=== PATIENT | male | born 1970 | race Caucasian/White ===

== ENCOUNTER 2016-05-13 06:58 | Day surgery (SDC) | payer SELFPAY ==
[~2016-05-13 06:58] MED LIST: Lactated Ringers 1,000 ML IV SCH; Lidocaine 1%/Sod Bicarbonate in NS 8.4% 1 ML Syringe PRN; Sodium Chloride 0.9% 10 ML Syringe FLUSH PRN
[2016-05-13] MEDS ORDERED: Propofol 200 MG/20 ML SDV ONE (07:17)
[2016-05-13] MEDS ORDERED: fentaNYL 250 MCG/5 ML SDV ONE (07:17)
[2016-05-13] MEDS ORDERED: Midazolam 1 MG/ML 2 ML SDV ONE (07:17)
[2016-05-13] MEDS ORDERED: Succinylcholine/Normal Saline 100 MG/5 ML Syringe ONE (07:19)
[2016-05-13] MEDS ORDERED: Lidocaine 1% 4 ML ONE (07:19)
[2016-05-13] MEDS ORDERED: EPINEPHrine 1:1000 1 MG/ML 30 ML MDV ONE (07:19)
[2016-05-13] MEDS ORDERED: Bupivacaine 0.5%/EPINEPHrine 1:200,000 50 ML MDV ONE (07:19)
[2016-05-13] MEDS ORDERED: Lidocaine 1% with EPINEPHrine 1:100,000 20 ML MDV ONE (07:20)
--- NOTE | 2016-05-13 07:31 | PCM.PREANE ---
Preanesthetic Assessment - Anesthesia/Transfusion/Family Hx Anesthesia History: Prior Anesthesia Without Reaction Family History of Anesthesia Reaction: No Transfusion History: No Prior Transfusion(s) - Review of Systems General: No Symptoms Pulmonary: Cough (chronic cough from smoking) Cardiovascular: No Symptoms Gastrointestinal: No symptoms Neurological: No Symptoms Other: Reports: None - Physical Assessment NPO Status Date: 05/12/16 NPO Status Time: 22:30 Pulse: 76 O2 Sat by Pulse Oximetry: 98 Respiratory Rate: 16 Blood Pressure: 113/76 Temperature: 36.8 C Height: 1.78 m Weight: 70.76 kg ASA Class: 2 Mental Status: Alert & Oriented x3 Dentition: Reports: Normal Dentition Thyro-Mental Finger Breadths: 3 Mouth Opening Finger Breadths: 5 ROM/Head Extension: Full Lungs: Clear to auscultation, Normal respiratory effort Cardiovascular: Regular Rate, Regular Rhythm - Allergies Allergies/Adverse Reactions: Allergies Allergy/AdvReac Type Severity Reaction Status Date / Time Penicillins Allergy Difficulty Verified 05/10/16 10:45 Breathing - Blood Blood Available: No - Anesthesia Plan Pre-Op Medication Ordered: None - Acknowledgements Anesthesia Type Planned: General Anesthesia Pt an Appropriate Candidate for the Planned Anesthesia: Yes Alternatives and Risks of Anesthesia Discussed w Pt/Guardian: Yes Pt/Guardian Understands and Agrees with Anesthesia Plan: Yes PreAnesthesia Questionnaire HEENT History: Reports: None Cardiovascular History: Reports: None Respiratory History: Reports: None Gastrointestinal History: Reports: None Genitourinary History: Reports: None 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 Musculoskeletal History: Reports: None Neurological History: Reports: None Psychiatric History: Reports: None Endocrine/Metabolic History: Reports: None Hematologic History: Reports: None Immunologic History: Reports: None Dermatologic History: Reports: None - Infectious Disease History Infectious Disease History: Reports: None - Past Surgical History Musculoskeletal Surgical History: Reports: Shoulder surgery - SUBSTANCE USE Smoking Status *Q: Current Every Day Smoker (1.5 packs/ day) Tobacco Use Within Last Twelve Months: Cigarettes Date of Last Drink: 02/25/16 (quit drinking alcohol about 3 months ago per patient ) Recreational Drug Use History: No Recreational Drug Type: Reports: Marijuana/Hashish (last 3 months ago), Methamphetamine (last 2000) - CURRENT (IN HOUSE) MEDS Current Meds: Current Medications Lactated Ringer's (Ringers, Lactated) 1,000 mls @ 125 mls/hr IV ASDIRECTED LORETA Stop: 05/13/16 23:00 Lidocaine/Sodium Bicarbonate (Buffered Lidocaine 1% In Ns 8.4%) 0.25 ml .XX ONETIME PRN PRN Reason: Prior to IV Start Stop: 05/13/16 18:00 Sodium Chloride (Saline Flush) 10 ml FLUSH ASDIRECTED PRN PRN Reason: Keep Vein Open Stop: 05/13/16 18:00 Discontinued Medications Bupivacaine HCl/Epinephrine Bitart (Marcaine 0.5%/Epinephrine 1:200,000) Confirm Administered Dose 50 ml .ROUTE .STK-MED ONE Stop: 05/13/16 07:20 Epinephrine HCl (Adrenalin 1:1000) Confirm Administered Dose 30 mg .ROUTE .STK- MED ONE Stop: 05/13/16 07:20 Fentanyl (Sublimaze) Confirm Administered Dose 250 mcg .ROUTE .STK-MED ONE Stop: 05/13/16 07:18 Lidocaine HCl (Xylocaine-Mpf 1%) Confirm Administered Dose 4 mls @ as directed .ROUTE .STK-MED ONE Stop: 05/13/16 07:20 Lidocaine/Epinephrine (Xylocaine 1% With Epinephrine 1:100,000) Confirm Administered Dose 20 ml .ROUTE .STK-MED ONE Stop: 05/13/16 07:21 Midazolam HCl (Versed 1 Mg/Ml) Confirm Administered Dose 2 mg .ROUTE .STK-MED ONE Stop: 05/13/16 07:18 Propofol (Diprivan 20 Ml) Confirm Administered Dose 400 mg .ROUTE .STK-MED ONE Stop: 05/13/16 07:18 Succinylcholine Chloride (Succinylcholine In Ns Pf) Confirm Administered Dose 100 mg .ROUTE .STK-MED ONE Stop: 05/13/16 07:20 Preanesthetic Assessment - ALLERGIES Allergies/Adverse Reactions: Allergies Allergy/AdvReac Type Severity Reaction Status Date / Time Penicillins Allergy Difficulty Verified 05/10/16 10:45 Breathing
[2016-05-13] MEDS ORDERED: Ondansetron 4 MG/2 ML SDV IVPUSH PRN (08:32)
[2016-05-13] MEDS ORDERED: diphenhydrAMINE 50 MG/ML SDV IVPUSH PRN (08:32)
[2016-05-13] MEDS ORDERED: fentaNYL 100 MCG/2 ML SDV IVPUSH PRN (08:32)
[2016-05-13] MEDS ORDERED: Dexamethasone 4 MG/ML 5 ML MDV ONE (08:43)
[2016-05-13] MEDS ORDERED: Phenylephrine 1% 10 MG/ML SDV ONE (08:43)
[2016-05-13] MEDS ORDERED: Ketorolac 30 MG/ML SDV ONE (08:49)
--- NOTE | 2016-05-13 09:20 | PCM.OPNOTE ---
- General Post-Op/Procedure Note Date of Surgery/Procedure: 05/13/16 Operative Procedure(s): 1. open right hydrocelectomy. 2. excision of a right testicular appendage Findings: large right hemiscrotal hydrocele containing 300 cc of fluid Pre Op Diagnosis: symptomatic right hydrocele Post-Op Diagnosis: same Anesthesia Technique: General LMA, Local Primary Surgeon: Pa Silva Pathology: none EBL in mLs: 3 Complications: None Condition: Good Free Text/Narrative:: After adequate LMA general anesthesia was obtained the patient was positioned in a supine fashion with his penis and scrotum prepped and draped sterilely for the procedure. Local analgesia was given in the median raphae of the scrotum. A 15 blade was used to make a skin incision approximately 6 cm in length. Cautery was used to enter the right hemiscrotum. The hydrocele was mobilized through the same incision. I made a small incision inthe hydrocele itself, which was bluish in color, externalyl and once entered contained yellow, straw-colored fluid. The testicles, and cord were normal. There was a testicular appendage, which I removed. I then excised the hydrocele sac back to the cord and testicle. I cauterized the edge for hemostasis. I replaced the right testicle into the right hemiscrotum. I closed the scrotum in 2 layers with Vicryl. Dermabond was used for the dressing. There were no procedural complications.
--- NOTE | 2016-05-13 09:23 | PCM.POSTAN ---
POST ANESTHESIA ASSESSMENT - MENTAL STATUS Mental Status: alert - VITAL SIGNS Pulse Rate: 78 SaO2: 92 Resp Rate: 9 Blood Pressure: 113/76 Temperature: 98.4 C - RESPIRATORY Respiratory Status: respiratory rate WNL, airway patent, O2 saturation stable - CARDIOVASCULAR CV Status: pulse rate WNL, blood pressure stable - GASTROINTESTINAL GI Status: no symptoms - PAIN Pain Score: 3 (being treated by WAITER/WAITRESS ) - POST OP HYDRATION Hydration Status: adequate & stable
[2016-05-13] MEDS ORDERED: Meperidine PF 50 MG/ML Syringe IVPUSH PRN (10:00)
--- NOTE | 2016-05-13 10:18 | PCM48HPAN ---
Post Anesthesia Note - EVALUATION WITHIN 48HRS OF ANESTHETIC Vital Signs in Normal Range: Yes Patient Participated in Evaluation: Yes Respiratory Function Stable: Yes Airway Patent: Yes Cardiovascular Function Stable: Yes Hydration Status Stable: Yes Pain Control Satisfactory: Yes Nausea and Vomiting Control Satisfactory: Yes Mental Status Recovered: Yes
[2016-05-13 10:32] VITALS: BP 92/64
== END 2016-05-13 10:30 | disposition home or self-care (01) ==
LOC: JD.SDS 06:58
PROVIDERS: ATTEND Surgery
PROC: 0VBF0ZZ Excision of Right Spermatic Cord, Open Approach (ICD-10-PCS; principal; 2016-05-13)
DX: N43.3 Hydrocele, unspecified (principal); F17.210 Nicotine dependence, cigarettes, uncomplicated; Z88.0 Allergy status to penicillin; Z98.890 Other specified postprocedural states
CPT/HCPCS: 55040; J1100; J1885; J2250; J2370; J3010; J7120; 00860; J0171; J0330; J2704